=== PATIENT | male | born 1955 | race Caucasian/White ===

== ENCOUNTER → 2016-05-09 | Outpatient (CLI) | payer MEDICAID ==
[~2016-05-09] MED LIST: ALBUTEROL SULF0.5 M1 INH; COLACE-T100 MG PO; COMBIVENT INH14.7 GM IH; COMBIVENT RESPI1 SPR INH; COZAAR25 M1 PO; DILAUDID 4MG TAB4 MG PO; FORADIL AERO0.012 MG IH; GOLYTELY SOLU4000 ML PO; LEVAQUIN 5500 MG/TA1 PO; LINZESS290 MCG PO; MORPHINE SULFAT60 M3 PO; MS CONTIN30 MG PO; NASONEX0.05 MG/AC NS; PROAIR RESPICL90 MCG INH; PROVIGIL200 MG PO; SPIRIVA INH IH; SYNTHROID0.15 MG PO; XANAX1 MG PO
== END ==
LOC: LAB 14:43
DX: K74.60 Unspecified cirrhosis of liver (principal); K75.4 Autoimmune hepatitis; R18.8 Other ascites; R10.9 Unspecified abdominal pain

== ENCOUNTER 2017-04-19 14:46 | Emergency (ER) | payer MEDICAID ==
[2017-04-19] MEDS ORDERED: CYCLOBENZAPRINE10 M1 PO (15:00)
[2017-04-19] MEDS ORDERED: SYMBICORT1 AE3 IH (15:00)
[2017-04-19] MEDS ORDERED: DOCUSATE SOD100 MG PO (15:01)
[2017-04-19] MEDS ORDERED: FUROSEMIDE20 MG PO (15:01)
[2017-04-19] MEDS ORDERED: HEMOCYTE324 MG PO (15:01)
[2017-04-19] MEDS ORDERED: PROTONIX TR40 M1 PO (15:02)
[2017-04-19] MEDS ORDERED: MIRALAX17 GM PO (15:02)
[2017-04-19] MEDS ORDERED: ALDACTONE50 M1 PO (15:02)
[2017-04-19] MEDS ORDERED: RT SPIRIVA INH18 MCG IH (15:03)
[2017-04-19 15:59] LABS: EOS # 0.1 (0.04-0.40); EOS % 4.2 % (0.0-4.0); HEMATOCRIT 35.7 % (42.0-52.0); HEMOGLOBIN 11.3 g/dL (13.5-18.0); MEAN CELL VOLUME 96 fl (78-100); MEAN CORPUSCULAR HEMOGLOBIN 30 pg (27-31); MEAN CORPUSCULAR HGB CONC 32 g/dL (33-37); MEAN PLATELET VOLUME 10.4 fl (7.4-10.4); MONO # 0.4 (0.20-0.80); NEU # 2.3 (1.40-6.50); PLATELET COUNT 60 K/mm3 (130-400); RED BLOOD COUNT 3.73 M/mm3 (4.20-5.60); WHITE BLOOD COUNT 3.4 K/mm3 (4.8-10.8)
[2017-04-19 16:11] LABS: LYMPH# 0.5 (1.50-4.00)
[2017-04-19 16:22] LABS: ALBUMIN 3.7 g/dL (3.5-5.0); BUN/CREATININE RATIO 12.9 (6.0-26.0); CALCIUM 8.4 mg/dL (8.4-10.2); TOTAL BILIRUBIN 0.9 mg/dL (0.2-1.3); TOTAL PROTEIN 6.3 g/dL (6.3-8.2)
[2017-04-19] MEDS ORDERED: IPRATROPIUM BROM3 M1 IH (16:34)
[2017-04-19] MEDS ORDERED: PREDNISONE10 MG PO (16:34)
[2017-04-19] MEDS ORDERED: AUGMENTIN 875-1 EAC1 PO (16:34)
[2017-04-19 17:03] VITALS: BP 122/56
== END 2017-04-19 17:02 | disposition home or self-care (01) ==
LOC: ED 14:46
PROVIDERS: Physician Assistant
DX: J44.1 Chronic obstructive pulmonary disease with (acute) exacerbation (principal); F17.210 Nicotine dependence, cigarettes, uncomplicated; J32.9 Chronic sinusitis, unspecified; E03.9 Hypothyroidism, unspecified; Z88.1 Allergy status to other antibiotic agents; Z88.2 Allergy status to sulfonamides

== ENCOUNTER 2017-07-12 13:28 | Emergency (ER) | payer MEDICAID ==
[~2017-07-12] VITALS: Wt 56.0 kg
[~2017-07-12 13:28] MED LIST changes: +ALDACTONE50 M1 PO; +AUGMENTIN 875-1 EAC1 PO; +CYCLOBENZAPRINE10 M1 PO; +DOCUSATE SOD100 MG PO; +FUROSEMIDE20 MG PO; +HEMOCYTE324 MG PO; +IPRATROPIUM BROM3 M1 IH; +MIRALAX17 GM PO; +PREDNISONE10 MG PO; +PROTONIX TR40 M1 PO; +RT SPIRIVA INH18 MCG IH; +SYMBICORT1 AE3 IH
[2017-07-12] MEDS ORDERED: MORPHINE SULFAT3010 PO (13:45)
[2017-07-12] MEDS ORDERED: SPIRONOLACTONE100 MG PO (13:48)
[2017-07-12] MEDS ORDERED: FUROSEMIDE40 MG (13:48)
[2017-07-12 14:12] LABS: EOS % 0.3 % (0.0-4.0); HEMATOCRIT 26.6 % (42.0-52.0); LYMPH# 1.7 (1.50-4.00); MEAN CELL VOLUME 94 fl (78-100); MEAN CORPUSCULAR HEMOGLOBIN 28 pg (27-31); MEAN CORPUSCULAR HGB CONC 30 g/dL (33-37); MONO # 1.3 (0.20-0.80); PLATELET COUNT 184 K/mm3 (130-400); RED BLOOD COUNT 2.84 M/mm3 (4.20-5.60); RED CELL DISTRIBUTION WIDTH 16.9 % (11.5-14.5); WHITE BLOOD COUNT 13.9 K/mm3 (4.8-10.8)
[2017-07-12 14:16] LABS: HEMOGLOBIN 7.9 g/dL (13.5-18.0); MEAN PLATELET VOLUME 12.6 fl (7.4-10.4); NEU # 10.9 (1.40-6.50)
[2017-07-12 14:21] LABS: BUN/CREATININE RATIO 86.3 (6.0-26.0); POTASSIUM 4.7 mmol/L (3.6-5.0); TOTAL BILIRUBIN 0.5 mg/dL (0.2-1.3); TOTAL PROTEIN 5.3 g/dL (6.3-8.2)
[2017-07-12 15:27] LABS: PARTIAL THROMBOPLASTIN TIME 24.8 SECONDS (21.0-32.0); PROTHROMBIN TIME 11.6 SECONDS (9.0-12.0)
[2017-07-12 15:42] LABS: PH-URINE 5.5 (5.0 - 8.0); URINE APPEARANCE CLEAR; URINE COLOR YELLOW; URINE GLUCOSE NEGATIVE (NEGATIVE); URINE KETONE 1+ (NEGATIVE); URINE PROTEIN(semi-quant) TRACE mg/dL (NEGATIVE)
[2017-07-12 15:43] LABS: URINE BILIRUBIN POSITIVE (NEGATIVE); URINE BLOOD NEGATIVE (NEGATIVE); URINE LEUKOCYTE ESTERASE NEGATIVE (NEGATIVE); URINE NITRATE NEGATIVE (NEGATIVE); URINE UROBILINOGEN NORMAL (NORMAL); URINE WBC 0-1 /hpf (0-3)
[2017-07-12 16:20] VITALS: BP 115/63
== END 2017-07-12 16:16 | disposition short-term general hospital (02) ==
LOC: ED 13:28
PROVIDERS: Physician Assistant
DX: K92.2 Gastrointestinal hemorrhage, unspecified (principal); E86.0 Dehydration; K74.60 Unspecified cirrhosis of liver; I85.10 Secondary esophageal varices without bleeding; D64.9 Anemia, unspecified; J43.9 Emphysema, unspecified
CPT/HCPCS: J7030